=== PATIENT | female | born 1980 | race Caucasian/White ===

== ENCOUNTER → 2016-06-30 | Day surgery (SDC) | payer BC ==
[~2016-06-30] VITALS: Ht 175.3 cm; Wt 72.6 kg
[2016-06-30] VITALS (9 sets, daily range): BP systolic 103–122; BP diastolic 60–70
[~2016-06-30] MED LIST: CIPRO500 MG PO; DiphenhydrAMINE 50mg/ml Inj IVP PRN; LR 1000ml 1,000 ML IVLG SCH; LR 1000ml ONE; Labetalol 5mg/ml 20ml vial IV PRN; Lidocaine 1% MPF 10mg/ml 5ml ONE; NKM; NORCO1 E1 ORAL; Propofol 10mg/ml 20ml IV ONE
--- NOTE | 2016-06-30 06:47 | Anethesia Preoperative Eval ---
Anesthesia Pre-op PMH/ROS General Date of Evaluation: Jun 30, 2016 Anesthesiologist: Jacky ASA Score: ASA 3 Mallampati Score Class I : Soft palate, uvula, fauces, pillars visible Class II: Soft palate, uvula, fauces visible Class III: Soft palate, base of uvula visible Class IV: Only hard plate visible Mallampati Classification: Class II Surgeon: Charis Diagnosis: h/o colon cancer Surgical Procedure: Colonoscopy Anesthesia History: none Family History: no anesthesia problems Allergies: Coded Allergies: HYDROMORPHONE (Verified Allergy, Severe, rash and hallucination, 06/07/15) SULFA (SULFONAMIDE ANTIBIOTICS) (Verified Allergy, Intermediate, 12/21/14) Medications: see eMAR Past Medical History Cardiovascular: Denies: CAD, HTN, PR, arrhythmia, other, valve dz Pulmonary: Denies: COPD, RUDOLPH, asthma, other Gastrointestinal/Genitourinary: Reports: other - colon cancer, Denies: CRI, ESRD, GERD Neurologic/Psychiatric: Denies: CVA, TIA, dementia, depression/anxiety, other Endocrine: Denies: DM, hypothyroidism, other, steroids HEENT: Denies: [place] (L), [place] (R), cataract (L), cataract (R), glaucoma, other Hematology/Immune: Denies: DVT, anemia, bleeding disorder, other Musculoskeletal/Integumentary: Denies: DDD, DJD, OA, RA, edema, other PSxH Narrative: colorectal sx Anesthesia Pre-op Phys. Exam Physician Exam Last Vital Signs Date Time Temp Pulse Resp B/P Pulse Ox O2 Delivery O2 Flow Rate FiO2 06/30/16 06:20 97.7 58 20 105/62 98 Room Air Constitutional: NAD Cardiovascular: RRR Respiratory: CTA Airway Exam Mallampati Score: Class II MO: full ROM: full Anesthesia Pre-op A/P Labs see chart Urine Test Test 06/30/16 06:00 Urine HCG, Qualitative Negative Studies Pre-op Studies: EKG - sr Risk Assessment & Plan Assessment: ASA III Plan: MAC Status Change Before Surgery: No Pre-Antibiotics Drug: N/A LUCRETIA HAWK M.D. Jun 30, 2016 06:47
--- NOTE | 2016-06-30 06:50 | Immediate Post-Op Evaluation ---
Immediate Post-Op Evalulation Immediate Post-Op Evalulation Procedure: Colonoscopy Date of Evaluation: Jun 30, 2016 Time of Evaluation: 07:37 IV Fluids: 400 Blood Products: 0 Estimated Blood Loss: 0 Urinary Output: 0 Blood Pressure Systolic: 108 Blood Pressure Diastolic: 56 Pulse Rate: 55 Respiratory Rate: 16 O2 Sat by Pulse Oximetry: 99 Temperature (Fahrenheit): 97.6 Pain Score (1-10): 0 Nausea: No Vomiting: No Complications 0 Patient Status: awake, reacts, patent, none Hydration Status: adequate Drug: N/A LUCRETIA HAWK M.D. Jun 30, 2016 06:50
--- NOTE | 2016-06-30 06:51 | 48 Hour Post Anesthesia Eval ---
Post Anesthesia Evaluation Procedure: Colonoscopy Date of Evaluation: Jun 30, 2016 Blood Pressure Systolic: 111 0: 78 Pulse Rate: 58 Respiratory Rate: 16 O2 Sat by Pulse Oximetry: 100 Airway: patent Nausea: No Vomiting: No Pain Intensity: 0 Hydration Status: adequate Cardiopulmonary Status: at baseline Mental Status/LOC: patient returned to baseline Post-Anesthesia Complications: 0 Follow-up care needed: ready to discharge LUCRETIA HAWK M.D. Jun 30, 2016 06:51
--- NOTE | 2016-06-30 07:10 | Short Stay Surgery H&P ---
History of Present Illness History of Present Illness Chief Complaint see typed note HPI Jesi Walls is a 35 year old female who was admitted on for Anemia Patient History Allergies: Coded Allergies: HYDROMORPHONE (Verified Allergy, Severe, rash and hallucination, 06/07/15) SULFA (SULFONAMIDE ANTIBIOTICS) (Verified Allergy, Intermediate, 12/21/14) PAST MEDICAL HISTORY: Past Surgeries: Social History: Medication History Scheduled No Known Medications* (NKM - No Known Medications*), 0 ., (Reported) Physical Exam Vital Signs Last Vital Signs Date Time Temp Pulse Resp B/P Pulse Ox O2 Delivery O2 Flow Rate FiO2 06/30/16 06:20 97.7 58 20 105/62 98 Room Air Labs Laboratory Tests Test 06/30/16 06:00 Urine HCG, Qualitative Negative Plan Attestation Are the patient's medical conditions optimized for surgery? DANIELLA SHARPE Jun 30, 2016 07:10
--- NOTE | 2016-06-30 07:11 | Pre-Procedure Note/Attestation ---
Pre-Procedure Note/Attestation Complete Prior to Procedure Planned Procedure: not applicable Procedure Narrative: colon Indications for Procedure Pre-Operative Diagnosis: colon CA Attestation I attest that I discussed the nature of the procedure; its benefits; risks and complications; and alternatives (and the risks and benefits of such alternatives ), prior to the procedure, with the patient (or the patient's legal surgical device sales representative). I attest that, if there was a reasonable possibility of needing a blood transfusion, the patient (or the patient's legal surgical device sales representative) was given the [facility] standardized written summary, pursuant to the [employer] Blood Safety Act ([place] Health and Safety Code # 1645, as amended). I attest that I re-evaluated the patient just prior to the surgery and that there has been no change in the patient's H&P, except as documented below: DANIELLA SHARPE Jun 30, 2016 07:11
--- NOTE | 2016-06-30 10:38 | Operative Note - Dictated ---
GASTROENTEROLOGY PROCEDURE REPORT: DATE OF PROCEDURE: 06/30/2016 PROCEDURE: Colonoscopy with biopsy and polypectomy. SURGEON: Deven Wayne M.D. ANESTHESIA: Please see the separate anesthesiologist notes for details. PRE-ENDOSCOPIC DIAGNOSIS: History of colon cancer. POST-ENDOSCOPIC DIAGNOSES: 1. Diminutive polyp in the sigmoid colon at 30 cm status post biopsy and cold snare polypectomy removal . 2. Mild internal hemorrhoids. PROCEDURE: The procedure, its risks, indications, alternatives, and possible complications including, but not limited to, bleeding, infection, perforation, , and anesthesia complications were explained to the patient and informed consent was obtained. The patient was then sedated in the left lateral decubitus position. A diagnostic colonoscope was inserted into the rectum and advanced to the cecum without difficulty. The cecum was identified by the appearance of the ileocecal valve. The colonoscope was then gradually withdrawn and mucosa examined carefully. The examination of the colonic mucosa revealed a diminutive polyp in the sigmoid colon at 30 cm, which was first biopsied and then removed with a cold snare polypectomy without complications. The region anastomosis at 15 cm was examined and there appeared to be free of tumor. Retroflexed view of the rectum revealed mild internal hemorrhoids. The colonoscope was removed. The patient was sent to recovery in good condition. COMPLICATIONS: None. RECOMMENDATIONS: 1. Follow up biopsy results. 2. Outpatient followup. Deven Wayne M.D. DR: Johnny JOB#: [id number] CC:
--- NOTE | 2016-07-03 20:09 | Endoscopy Procedure Note ---
Endoscopy Procedure Note Indication for Procedure: colon CA hx Procedures Performed: colonoscopy Operative Findings/Diagnosis: colon polyp at 30 - SN, Rhoids Specimen: yes Pt Tolerated Procedure Well: Yes Estimated Blood Loss: none Anesthesiologist: present Anesthesia: MAC Implant(s) used?: No 50 yrs or older w/o bx or poly: No 10yrs. F/U not recommended: No If not recommended, why?: Above average risk 10 yrs. F/U needed: No 18 years or older w/prev. colo: Yes <3yrs. since last colonoscopy: Yes Med reason:<3 yrs.: System Reason:<3 yrs.: Last colonoscopy >= to 3yrs: No DANIELLA SHARPE Jul 03, 2016 20:09
--- NOTE | 2016-07-03 20:11 | Brief Operative Note ---
Immediate Post Operative Note Operative Note Chief Complaint: colon CA Pre-op Diagnosis: colon CA Procedure: Colon , polypectomy Post-op Diagnosis: colon polyp at 30 - SN, Rhoids Surgeon: rob Anesthesiologist: see notes Anesthesia: MAC Specimen: yes Complications: none Condition: stable Estimated Blood Loss: none Drains: none Implant(s) used?: No DANIELLA SHARPE Jul 03, 2016 20:11
== END | disposition home or self-care (01) ==
LOC: GAS 05:46
DX: Z85.038 Personal history of other malignant neoplasm of large intestine (principal); D12.5 Benign neoplasm of sigmoid colon; K64.8 Other hemorrhoids; K63.89 Other specified diseases of intestine; Z90.49 Acquired absence of other specified parts of digestive tract; D50.9 Iron deficiency anemia, unspecified; G62.9 Polyneuropathy, unspecified; J45.909 Unspecified asthma, uncomplicated; N83.209 Unspecified ovarian cyst, unspecified side; Z88.5 Allergy status to narcotic agent; Z88.2 Allergy status to sulfonamides
CPT/HCPCS: 45385; 81025; J2704; J7120; 94003; 94150

== ENCOUNTER 2019-07-26 09:29 | Outpatient (CLI) | payer MEDICAID ==
[~2019-07-26] VITALS: Ht 175.3 cm; Wt 77.1 kg
[~2019-07-26 09:29] MED LIST changes: -DiphenhydrAMINE 50mg/ml Inj IVP PRN; -LR 1000ml 1,000 ML IVLG SCH; -LR 1000ml ONE; -Labetalol 5mg/ml 20ml vial IV PRN; -Lidocaine 1% MPF 10mg/ml 5ml ONE; -Propofol 10mg/ml 20ml IV ONE
--- NOTE | 2019-07-26 10:05 | NUR ---
Pt gave a in March 2019. weight before pregnacy 160 lb. Addendum: 07/26/19 at 1357 by LELA CURIEL Amended: Links added.
[2019-07-26 13:53] VITALS: BP 108/68
--- NOTE | 2019-07-26 17:00 | Consultation ---
DATE OF CONSULTATION: 07/26/2019 CHIEF COMPLAINT: History of colon cancer. HISTORY OF PRESENT ILLNESS: The patient is a 38-year-old female diagnosed with colon cancer in 2015. She had a surgery, chemotherapy, and last colonoscopy was in 2018. Oncologist recommended to get a repeat colonoscopy. The patient is also having complaint of rectal bleeding which has resolved when she was constipated after giving . PAST MEDICAL HISTORY: 1. History of colon cancer status post resection. 2. Hemorrhoids. 3. Anemia. PAST SURGICAL HISTORY: 1. Partial colectomy. 2. . MEDICATIONS: Please see medication reconciliation list. FAMILY HISTORY: No family history of GI malignancies. SOCIAL HISTORY: The patient denies any tobacco, alcohol, or drug abuse. REVIEW OF SYSTEMS: Positive for mild constipation and rectal bleeding as dictated above. PHYSICAL EXAMINATION: VITAL SIGNS: Temperature 98.6, blood pressure 108/68, pulse 70, respirations 20. HEENT: Normocephalic and atraumatic. Sclerae anicteric. NECK: Supple. No evidence of obvious lymphadenopathy. CARDIOVASCULAR: Regular rate and rhythm. Plus S1 and S2. LUNGS: Clear to auscultation bilaterally. ABDOMEN: Positive bowel sounds. Soft and nontender. No rebound. No guarding. No peritoneal sign. EXTREMITIES: No cyanosis. No clubbing. No edema ASSESSMENT AND PLAN: This is a 38-year-old female with colon cancer at age 33, needs repeat colonoscopy. The patient was given Anusol-HC and MiraLAX for now. If she bleeds, she was told to call be back earlier. Otherwise, we are going to go ahead and schedule her for colonoscopy when authorization is obtained. Carlos Vizcaino M.D. DR: Kiki JOB#: [id number] CC:
== END 2019-07-26 14:30 | disposition home or self-care (01) ==
LOC: PAN 09:29
DX: K62.5 Hemorrhage of anus and rectum (principal); Z85.038 Personal history of other malignant neoplasm of large intestine; K59.00 Constipation, unspecified
CPT/HCPCS: G0463